=== PATIENT | female | born 1950 ===

== ENCOUNTER 2025-04-29 06:36 | Outpatient (CLI) | payer OTHER ==
[~2025-04-29 06:36] MED LIST: JANUMET 50-5001 EACH PO
[2025-04-29 07:32] LABS: COL EPI 99 SECONDS (82-175)
== END 2025-04-29 06:37 | disposition home or self-care (01) ==
LOC: LAB 06:36
PROVIDERS: ATTEND Internal Medicine Geriatric Medicine
DX: D68.9 Coagulation defect, unspecified (principal)

== ENCOUNTER 2025-04-29 06:48 | Day surgery (SDC) | payer OTHER ==
[2025-04-29] MEDS ORDERED: CEFTRIAXONE SODIUM 2,000 MG VIAL ONE (09:22)
[2025-04-29] MEDS ORDERED: METRONIDAZOLE/SODIUM CHLORIDE 500 MG/100 ML PIGGYBACK IV ONE (09:22)
[2025-04-29] MEDS ORDERED: HEMOSTATIC MATRIX 1 KIT KIT TOP ONE (09:45)
[2025-04-29] MEDS ORDERED: BUPIVACAINE HCL/MPF 0.5% 30ML VIAL ONE (09:48)
[2025-04-29] MEDS ORDERED: POVIDONE-IODINE 118 ML BOTT TOP ONE (09:48)
[2025-04-29] MEDS ORDERED: BUPIVACAINE LIPOSOME/PF 266 MG/20 ML VIAL IJ ONE (10:39)
== END 2025-04-29 15:30 | disposition home or self-care (01) ==
LOC: CIR.AMB 06:48
PROVIDERS: ATTEND Colon & Rectal Surgery
DX: K64.2 Third degree hemorrhoids (principal); K64.4 Residual hemorrhoidal skin tags